=== PATIENT | male | born 1950 | race Caucasian/White ===

== ENCOUNTER 2024-12-17 07:31 | Emergency (ER) | payer MEDICARE, OTHER, SELFPAY ==
[2024-12-17] VITALS (19 sets, daily range): BP systolic 104–151; BP diastolic 54–83; PULSE 63–86; RESP 16–31; TEMP 36.3–36.8; O2SAT 91–96; BMI 27.6
--- NOTE | 2024-12-17 07:34 | EKG_ITS ---
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
--- NOTE | 2024-12-17 07:35 | ED.GENADULT ---
HPI - General Adult General Chief complaint: Chest Pain Stated complaint: Per patient, Possible Heart Attack Time Seen by Provider: 12/17/24 07:35 Source: patient, RN notes reviewed and old records reviewed Mode of arrival: Family Vehicle Limitations: no limitations History of Present Illness HPI narrative: 74-year-old male history of coronary artery disease with prior cardiac stents on medication for dyslipidemia, hypertension and aspirin 81 mg daily. Patient presents with complaint of substernal and left-sided chest pain radiates to his left shoulder. Denies any back or neck or abdominal radiation. He states he was felt sort of hot but denies any known fevers. He was had nausea but no vomiting. He had describes shortness of breath with the symptoms particularly with deep inhalation. He states exertion does not seem to worsen them. He denies any diaphoresis. No syncope. No cold cough or congestion symptoms. No new swelling in his extremities. He states he was had normal bowel movements and normal urination. States feels very similar to when he had a heart attack in his 40s and subsequently had cardiac stents x2 afterwards. Patient states he has taken 243 mg of aspirin at home as well as sublingual nitro x2 which seemed to bring his chest discomfort down to a 1 in his only present when he takes a deep inhalation. States prior surgeries include his cardiac stents and right shoulder surgery. Denies any drug allergies. No tobacco, has a 1 alcoholic drink nightly, no recreational drugs other than THC. Lives on [place]. His primary care is Dr. Ruelas with [facility] and [place]. Has not seen Cardiology in for 5 years but was treated through the [facility] in [place]. Patient states no long distance travel, no sitting for extended periods. Related Data Previous Rx's Medication Instructions Recorded ofloxacin 0.3 % eye drops (Ocuflox) 0 OPHTH QID ##1 10/26/16 apixaban 5 mg (74 tabs) tablets in See Rx Instructions PO .COMPLEX 12/17/24 a dose pack (Eliquis DVT-PE Treat #74 ea 30D Start) Allergies Allergy/AdvReac Type Severity Reaction Status Date / Time No Known Drug Allergies Allergy Verified 12/17/24 08:05 Review of Systems Review of Systems ROS Unobtainable: All systems reviewed & are unremarkable except as noted in HPI and below Patient History Surgical History History of angioplasty History of angioplasty Family History Father Colon cancer High cholesterol Mother Heart attack Hypertension Exam Narrative Exam Narrative: GENERAL: Alert and oriented x three, mild distress. No diaphoresis. HEENT: Head normocephalic, atraumatic, EOMI, pupils reactive, face symmetric, moist mucous membranes NECK: Supple, full range of motion CARDIOVASCULAR: Regular rate and rhythm without murmurs, rubs or gallops. No JVD. No edema bilateral lower extremities. No reproducible chest pain. No rash or skin changes. RESPIRATORY: Breath sounds equal bilaterally, no wheezes rales or rhonchi. No tachypnea or accessory muscle use. ABDOMEN: Soft, nontender. Normoactive bowel sounds all 4 quadrants. No guarding or rebound, rigidity, no mass : No CVA tenderness EXTREMITIES: Normal range of motion, no clubbing or edema. Neurovascularly intact NEUROLOGICAL: Cranial nerves II through XII grossly intact. Moving all extremities SKIN: Warm, dry, no petechiae, no rashes or lesions. Initial Vital Signs Initial Vital Signs: Vital Signs Pulse Rate 63 12/17/24 07:40 Respiratory Rate 23 12/17/24 07:40 Pulse Oximetry 94 12/17/24 07:40 Course Orders Ordered: ED Orders 12/17/24 09:52 Trop I [Troponin I] Stat Discontinued Medications Acetaminophen (Acetaminophen 325 Mg Tablet) 975 mg PO NOW ONE Stop: 12/17/24 09:43 Last Admin: 12/17/24 09:58 Dose: 975 mg Documented By: SCAR Apixaban (Apixaban 5 Mg Tablet) 10 mg PO NOW ONE Stop: 12/17/24 09:30 Last Admin: 12/17/24 09:58 Dose: 10 mg Documented By: SCAR Aspirin (Aspirin 81 Mg Chew Tab) 324 mg PO NOW ONE Stop: 12/17/24 07:41 Last Admin: 12/17/24 07:54 Dose: Not Given Documented By: NEIL Aspirin (Aspirin 81 Mg Chew Tab) 81 mg PO DAILY ONE Stop: 12/17/24 07:52 Last Admin: 12/17/24 07:58 Dose: 81 mg Documented By: LEXIE Nitroglycerin (Nitroglycerin 0.4 Mg Sl Tab) 0.4 mg SL [id number] PRN PRN Reason: Chest Pain Last Admin: 12/17/24 07:58 Dose: 0.4 mg Documented By: LEXIE Vital Signs Vital signs: Vital Signs - 8 hr 12/17/24 10:42 Temperature 98.2 F Pulse Rate 67 Respiratory Rate 16 Blood Pressure 141/63 H Pulse Oximetry 93 Medical Decision Making Lab Data 12/17/24 07:45 12/17/24 07:45 Labs: Lab Results 12/17/24 12/17/24 Range/Units 07:45 09:52 WBC 7.1 (4.5-11.0) X10^3/uL RBC 4.26 L (4.5-5.9) X10^6/uL Hgb 13.6 (13.5-17.5) g/dL Hct 39.6 L (41-53) % MCV 92.9 (80-100) fL MCH 32.0 (26-34) PG MCHC 34.4 (30-36) % RDW 12.8 (11.6-14.8) % Plt Count 119 L (150-400) X10^3/uL Neut % (Auto) 72.6 (50-75) % Lymph % (Auto) 11.0 L (25-40) % [place] % (Auto) 12.2 (3-14) % Eos % (Auto) 3.1 (2-4) % Baso % (Auto) 1.1 (0-2) % Neut # (Auto) 5200 (4263-1102) /uL Lymph # (Auto) 800 L (9361-8166) /uL [place] # (Auto) 900 (0-900) /uL Eos # (Auto) 200 (0-450) /uL Baso # (Auto) 100 (0-100) /uL PT 12.7 H (9.4-12.5) SECONDS INR 1.1 (0.9-1.3) APTT 30 (25.1-36.5) SECONDS D-Dimer 53969 H (<500) ng/ml Sodium 138 (137-145) mmol/L Potassium 4.6 (3.4-5.1) mmol/L Chloride 106 (98-107) mmol/L Carbon Dioxide 26 (22-32) mmol/L BUN 24 H (9-20) mg/dL Creatinine 1.20 (0.66-1.25) mg/dL Estimated GFR > 60 (>60) mL/min BUN/Creatinine Ratio 20.0 (6-22) Glucose 94 (80-110) mg/dL Calcium 9.0 (8.4-10.2) mg/dL Magnesium 2.2 (1.6-2.3) mg/dL Total Bilirubin 0.8 (0.2-1.3) mg/dL AST 42 (17-59) IU/L ALT 38 (<50) IU/L Alkaline Phosphatase 69 (38-126) U/L Total Creatine Kinase 138 (55-170) U/L Troponin I < 0.012 < 0.012 (0.01-0.034) ng/mL NT-Pro-B Natriuret Pep 41 (<450) pg/mL Total Protein 7.0 (6.3-8.2) g/dL Albumin 4.1 (3.5-5.0) g/dL Globulin 2.9 (1.7-4.1) g/dL Albumin/Globulin Ratio 1.4 (1.0-2.8) Lipase 78 (23-300) U/L ECG Data Attestation: I personally reviewed and interpreted this ECG as follows: Prior ECG tracings: not available for review Interpretation: Sinus rhythm rate of 65 LA 132 QRS 84 QTC of 407, no acute ST elevation or depression. No prior for comparision. [facility] Narrative Medical decision making narrative: 74-year-old male presents with description of left-sided chest discomfort sensation of shortness of breath particularly with deep inhalation, nausea starting last night and into today. Patient took 243 of aspirin and nitro sublingual x2 which he states almost completely resolved his symptoms describes it as a 1/10 at this time. Denies any exertional component. Labs show normal white count hemoglobin of 13.6, platelets are 119 no priors for comparison. INR is 1.1, chemistries normal electrolytes, BUN 24 creatinine of 1.2 glucose 94, LFTs are normal lipase is 78. Troponin is less than 0.012 with a BNP of 41 D-dimer is quite elevated at 16,822 outside any age adjustment cut off. We will obtain CT angio. EKG shows sinus rhythm, no acute ST elevation depression noted. Chest x-ray shows left basilar atelectasis versus pneumonia. CTA chest left lower lobe pulmonary emboli without evidence of right heart strain. There is some flow through the blood clot perfusing left medial basilar segment. Mild bibasilar reticular thickening left lower lung likely reactive to underlying pulmonary embolism. Patient had an additional 81 mg aspirin, nitro sublingual to the 243 mg aspirin he took it home for total of 324 mg. Patient did not appreciate much change. Patient was given oral apixaban as well as acetaminophen. Reviewed findings with the patient he does not recall the pleuritic component to his chest pain last time has not notes some fatigue and fever tight feeling for the past week but no cough cold or congestion symptoms. Chest x-ray shows some possible pneumonia. Dimer is quite elevated although he did not have other risk factors both pleuritic nature it has been ordered obtain CT angio. Labs show mild thrombocytopenia which patient states was related to him last week. CT angio does show left lower lobe PE no evidence of right heart strain just shows some flow past. Patient's initial cardiac workup is negative and no signs of heart strain on EKG, lab workup or CT imaging. We will repeat troponin and if still negative and patient able to ambulate without any increased O2 requirements likely appropriate for discharge home on oral anticoagulation. Hestia score is 0 PESI score is 0, patient had a single low BP. Patient has ambulated to the bathroom without any issues continued to be 93-94% on room air. Discussed with the patient he feels comfortable with discharge home we will likely stay locally overnight before returning to [place]. Given 1st dose of oral anticoagulants here sent prescription. We did discuss if there was any issues with pharmacy to call and we can adjust if there are financial issues with the cost. Also discussed return precautions. All questions answered. Patient defers anything narcotic for pain. Discussed avoid NSAIDs but can continue with acetaminophen. Discharge Plan Departure Patient Disposition: Home Clinical Impression: Pulmonary embolism on left Instructions: DI for Pulmonary Embolism Activity Restrictions/Additional Instructions: Your imaging today does show blood clot or pulmonary embolism that is moderate-sized in the left lower lobar pulmonary artery there is some flow plasty o'clock and perfusing the left medial basilar segment of your lung. There is also a little bit of reticular thickening and left lower lung atelectasis likely related to her underlying pulmonary embolism. Your workup did show your platelets are slightly low at 119, these need to be seen to be followed closely by your physician. You can take acetaminophen up to a 1000 mg every 6 hours as needed for pain. Please take oral anticoagulation until told to stop by your physician, typically individuals are anticoagulated for 6-12 months. Hold your aspirin for now. 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 It is important that you take this medication regularly to help prevent any new blood clots and a lot your body to breakdown of the one that is present. A prescription was sent to [facility] in [place]. Please return for fevers, increasing pain, lightheadedness or passing out, new swelling of your extremities, worsening chest pain or shortness of breath or other new or concerning changes. Prescriptions: New Eliquis DVT-PE Treat 30D Start 5 mg (74 tabs) tablets,dose pack See Rx Instructions .ROUTE .COMPLEX Qty: 74 0RF Rx Instructions: orally per package directions> Take 10 mg (2 tablets) p.o. b.i.d. x7 days, then 5 mg (1 tablet) p.o. b.i.d. No Action ofloxacin [Ocuflox] 5 ML drops 0 OPHTH QID Qty: 1 0RF Stand Alone Forms: Patient Portal/API/Survey
--- NOTE | 2024-12-17 07:40 | DI.RAD.S_ITS ---
PROCEDURE: XR CHEST 1V INDICATIONS: chest pain TECHNIQUE: One view of the chest was acquired. COMPARISON: None. FINDINGS: Surgical changes and devices: None. Lungs and pleura: Left basilar atelectasis versus consolidation. No pleural effusions or pneumothorax. Mediastinum: Mediastinal contours appear normal. Heart size is normal. Bones and chest wall: No suspicious bony lesions. Overlying soft tissues appear unremarkable. IMPRESSION: Left basilar atelectasis versus pneumonia. Dictated by: Ole Castellon M.D. on 12/17/2024 at 8:08 Approved by: Ole Castellon M.D. on 12/17/2024 at 8:09
[2024-12-17] MEDS: NITROGLYCERIN 0.4 MG SL TAB SL (07:58)
[2024-12-17] MEDS: ASPIRIN 81 MG CHEW TAB PO (07:58)
[2024-12-17 08:00] LABS: Add Manual Diff / Slide Review NO; Basophils Absolute Auto 100 /uL (0-100); Basophils Percent Auto 1.1 % (0-2); Eosinophils Absolute Auto 200 /uL (0-450); Eosinophils Percent Auto 3.1 % (2-4); Hematocrit 39.6 % (41-53); Hemoglobin 13.6 g/dL (13.5-17.5); Lymphocytes Absolute Auto 800 /uL (1100-4500); Mean Corpuscular HGB Conc 34.4 % (30-36); Mean Corpuscular Volume 92.9 fL (80-100); Monocytes Absolute Auto 900 /uL (0-900); Monocytes Percent Auto 12.2 % (3-14); Neutrophils Absolute Auto 5200 /uL (1500-7000); Neutrophils Percent Auto 72.6 % (50-75); Platelet Count 119 X10^3/uL (150-400); Red Blood Cell Count 4.26 X10^6/uL (4.5-5.9); Red Cell Distribution Width 12.8 % (11.6-14.8); White Blood Cell Count 7.1 X10^3/uL (4.5-11.0)
[2024-12-17 08:10] LABS: INR 1.1 (0.9-1.3); Prothrombin Time 12.7 SECONDS (9.4-12.5)
[2024-12-17 08:13] LABS: PTT Partial Thromboplastin Tim 30 SECONDS (25.1-36.5)
[2024-12-17 08:24] LABS: Alanine Aminotransferase 38 IU/L (<50); Albumin 4.1 g/dL (3.5-5.0); Albumin Globulin Ratio 1.4 (1.0-2.8); Alkaline Phosphatase 69 U/L (38-126); Aspartate Aminotransferase 42 IU/L (17-59); Bilirubin Total 0.8 mg/dL (0.2-1.3); Blood Urea Nitrogen 24 mg/dL (9-20); Carbon Dioxide 26 mmol/L (22-32); Chloride 106 mmol/L (98-107); Creatine Kinase 138 U/L (55-170); Estimated Glomerular Filt Rate > 60 mL/min (>60); Globulin 2.9 g/dL (1.7-4.1); Glucose 94 mg/dL (80-110); HEMOLYSIS < 15 (0-50); Lipase 78 U/L (23-300); Magnesium 2.2 mg/dL (1.6-2.3); Potassium 4.6 mmol/L (3.4-5.1); Sodium 138 mmol/L (137-145)
[2024-12-17 08:27] LABS: D Dimer 16822 ng/ml (<500)
--- NOTE | 2024-12-17 08:32 | DI.CT.S_ITS ---
PROCEDURE: CT ANGIO CHEST PE PROTOCOL INDICATIONS: L chest pain, pleuritic, elevated dimer TECHNIQUE: After the administration of intravenous contrast, 2 mm thick sections acquired from the pulmonary apices to the posterior costophrenic angles. 3-dimensional maximum intensity projection (MIP) coronal and sagittal reformats were then acquired through the thorax. For radiation dose reduction, the following was used: automated exposure control, adjustment of mA and/or kV according to patient size. COMPARISON: None. FINDINGS: Image quality: Diagnostic. Pulmonary arteries: There is a moderate sized filling defect within the left lower lobar pulmonary artery. Some flow passes the blood clot and perfuses the left medial basilar segment Lower Neck: No enlarged lymph nodes. Thyroid: No thyroid nodules which require sonographic follow up, per consensus guidelines. Axillae: No enlarged lymph nodes. Chest Wall: Unremarkable. Bones: Unremarkable. Lungs and Pleura: No pneumothorax or pleural effusions. Mild bibasilar reticular thickening. Left lower lung atelectasis, likely reactive to the underlying PE. Heart: Heart size is normal. No pericardial effusion. Severe coronary artery disease. Thoracic Vessels: No aortic aneurysm. Mediastinum and [place]: No enlarged lymph nodes. Esophagus: No wall thickening. No hiatal hernia. Upper Abdomen: Visualized upper abdomen solid organs and bowel loops appear normal. IMPRESSION: Left lower lobe pulmonary emboli without evidence of right heart strain. Dr. Byrd discussed the above findings with the ordering provider at 8:24 a.m. [place] time. Dictated by: Roland Byrd M.D. on 12/17/2024 at 8:17 Approved by: Roland Byrd M.D. on 12/17/2024 at 8:24
[2024-12-17 08:35] LABS: NT-proBNP (BNP-Adult 18+) 41 pg/mL (<450); Troponin I < 0.012 ng/mL (0.01-0.034)
--- NOTE | 2024-12-17 09:24 | PC.NURSE ---
Pt reports ongoing fatigue for 7-10 days. States he thought he had the flu given he had a temperature. Reports sharp left sided chest pain. States he did yard work and worked out and felt more sob than usual
[2024-12-17] MEDS: ACETAMINOPHEN 325 MG TABLET 975 MG PO (09:58)
[2024-12-17] MEDS: APIXABAN 5 MG TABLET 10 MG PO (09:58)
[2024-12-17 10:21] LABS: Troponin I < 0.012 ng/mL (0.01-0.034)
--- NOTE | 2024-12-17 10:32 | PC.NURSE ---
92-93% when ambulating. Pt states he feels pretty good when walking about
== END 2024-12-17 10:54 | disposition home or self-care (01) ==
PROVIDERS: Emergency Provider Emergency Medicine; Family Provider Family Medicine
DX: I26.99 Other pulmonary embolism without acute cor pulmonale (principal); I25.2 Old myocardial infarction; I10 Essential (primary) hypertension; I25.10 Atherosclerotic heart disease of native coronary artery without angina pectoris; E78.5 Hyperlipidemia, unspecified; Z95.5 Presence of coronary angioplasty implant and graft
CPT/HCPCS: 36415; 71045; 71275; 80053; 82550; 83690; 83735; 83880; 84484; 85025; 85379; 85610; 85730; 93005; 99284; Q9967